=== PATIENT | male | born 2000 | race Caucasian/White ===

== ENCOUNTER 2022-01-08 23:35 | Emergency (ER) | payer SELFPAY ==
[2022-01-08 23:50] VITALS: BP 138/89; PULSE 97; RESP 18; TEMP 36.6; O2SAT 100; BMI 25.0
--- NOTE | 2022-01-08 23:53 | XRR_ITS ---
PROCEDURE INFORMATION: Exam: XR Right Hand Exam date and time: 01/09/2022 12:15 AM Age: 21 years old Clinical indication: Pain; Hand; Right; Patient HX: Punched a wooden door; Additional info: Trauma TECHNIQUE: Imaging protocol: Radiologic exam of the Right hand. Views: 3 or more views. COMPARISON: No relevant prior studies available. FINDINGS: Bones/joints: No fracture or other acute osseous abnormality. No acute joint abnormality demonstrated. Soft tissues: Soft tissue swelling noted. XR/XR hand RT min 3V* [id number] IMPRESSION: 1. Soft tissue swelling noted. 2. No acute fracture demonstrated.
--- NOTE | 2022-01-09 01:09 | ED_ITS ---
HPI - Extremity Problem General: Chief complaint: Extremity Injury, Upper Stated complaint: Right hand injury Time Seen by Provider: 01/09/22 00:55 History of Present Illness: Patient is a 21-year-old male comes to the ED with right hand injury. Injury occurred about late morning earlier today. He got angry and punched a wooden door with his right hand. He now has pain and swelling in his right hand. Associated symptoms: Deny chest pain, fever(s) or rash Review of Systems Const: Denies: fever(s), chills or fatigue Eyes: Denies: change in vision or eye discomfort ENMT: Denies: throat pain, odynophagia, nasal discharge or nasal congestion Card: Denies: chest pain, palpitations, edema, swelling of feet/ankles, dyspnea on exertion or orthopnea Resp: Denies: dyspnea, productive cough or non-productive cough GI: Denies: abdominal pain, nausea, vomiting, diarrhea, constipation or hematochezia : Denies: flank pain, difficulty urinating, dysuria or hematuria Musc: Reports: extremity pain (Right hand), extremity swelling (Right hand) and limited range of motion (Right hand due to pain); Denies: neck pain or back pain Skin/Breast: Denies: rash or new lesions Neuro: Denies: headache(s), numbness in extremities or weakness in extremities PFS ED PFSH: Medical History No pertinent family history Surgical History No pertinent past surgical history Physical Exam Const: COMMON NORMALS: no acute distress, patient oriented x3 and alert GENERAL APPEARANCE: cooperative HENMT: COMMON NORMALS: normocephalic HEAD & SCALP: normocephalic MOUTH: Normal oral and palatal mucosa present THROAT: posterior oropharynx normal and uvula midline Neck/C-Spine: COMMON NORMALS: supple GENERAL: Yes normal visual inspection Resp: COMMON NORMALS: normal respiratory effort, No retractions, No use of accessory muscles and clear to auscultation bilaterally AUSCULTATION: clear to auscultation bilaterally Cardio: COMMON NORMALS: regular rate, regular rhythm, S1 normal heart sound present, S2 normal heart sound present, No gallops present (Cardio), No clicks present (Cardio), No murmurs present (Cardio) and Peripheral pulses 2+ throughout RATE: regular rate RHYTHM: regular rhythm HEART SOUNDS: S1 normal heart sound present and S2 normal heart sound present PERIPHERAL PULSES: Peripheral pulses 2+ throughout GI: COMMON NORMALS: Normal to inspection, nondistended, normoactive bowel sounds present, Soft to palpation, non-tender and no masses PALPATION: Yes Soft to palpation : COMMON NORMALS: Yes no CVA tenderness BLADDER/KIDNEY EXAM: Yes no CVA tenderness Back/Pelvis: COMMON NORMALS: no CVA tenderness Extremity: NARRATIVE EXTREMITY EXAM: Right hand?small abrasion on dorsal aspect of second digit MCP joint. He has associated swelling throughout dorsal aspect of right hand with some tenderness to palpation. Limited range of motion in fingers due to pain. Neurovascular intact. Neuro: COMMON NORMALS: patient oriented x3 and moves all extremities SENSORIUM/ORIENTATION: Yes alert Skin: GENERAL SKIN EXAM: dry skin Course Vital Signs: Vital signs: Vital Signs Temperature 98 F 01/08/22 23:50 Pulse Rate 97 01/08/22 23:50 Respiratory Rate 18 01/08/22 23:50 Blood Pressure 138/89 01/08/22 23:50 Pulse Oximetry 100 01/08/22 23:50 MDM - Extremity (Nontraumatic) Medical Decision Making Patient is a 21-year-old male comes to the ED with right hand injury. Injury occurred about late morning earlier today. He got angry and punched a wooden door with his right hand. Vital stable. Exam of patient Right hand?small abrasion on dorsal aspect of second digit MCP joint. He has associated swelling throughout dorsal aspect of right hand with some tenderness to palpation. Limited range of motion in fingers due to pain. Neurovascular intact. X-ray of right hand showed no acute fractures or findings. Patient diagnosed with a contusion of right hand and was discharged home with a prescription of ibuprofen 800 mg. He was told to follow-up with his PCP next week for reevaluation. Rest, ice and elevate right hand to help with symptoms. Return ED precautions given. Patient understood and agreed with plan. Lab Data Radiology Impressions Hand X-Ray 01/08/22 23:53 IMPRESSION: 1. Soft tissue swelling noted. 2. No acute fracture demonstrated. Discharge Plan Discharge Patient Disposition: Home Clinical Impression: Contusion of hand, right Qualifiers: Encounter type: initial encounter Qualified Code(s): S60.221A - Contusion of right hand, initial encounter Condition: Stable Prescriptions: New ibuprofen 800 mg tablet 800 mg PO Q8H PRN (Reason: pain) Qty: 30 0RF Discharge Orders: Discharge ED (Routine); Ordered 01/09/22 Ordered By: Gabriele Patel Discharge Diet: Regular Discharge Activity: Increase activity as tolerated Patient Instructions: Contusion in Adults (ED) Activity Restrictions/Additional Instructions: Follow-up with medical provider as directed in the next 5 to 7 days reevaluation. Rest, ice and elevate right hand to help with swelling. Take medications as prescribed. Clean small abrasion on knuckle daily with soap and water then apply triple antibiotic ointment and bandage. Return to the ER or your medical provider if condition worsens. Please read and understand discharge instructions. Thank you for choosing [facility] for your healthcare needs today. Please realize this is an emergency room and that we are providing you with a medical screening exam and this may not be complete and all inclusive of all the testing and or work up that you may need to determine your ailment or severity of your illness. It is very important that you follow up as instructed or that you return to the Emergency Department should you have concerns or if your condition changes or worsens in any way. Coding Level of Care Code ED Order Entry Administrator for Tye Dickerson Exam Comprehensive
[2022-01-09] MEDS: HYDROcodone-acetaminophen 7.5-325 mg Tablet 1 TAB PO (01:50)
[2022-01-09] MEDS: neomycin-poly-bacitracin oint 0.9 gm Pkt 1 APPLIC TOPICAL (01:50)
== END 2022-01-09 02:31 | disposition home or self-care (01) ==
PROVIDERS: Emergency Provider Physician Assistant
DX: S60.221A Contusion of right hand, initial encounter (principal); W22.09XA Striking against other stationary object, initial encounter
CPT/HCPCS: 73130; 99283

== ENCOUNTER 2022-11-14 09:32 | Emergency (ER) | payer MEDICAID, SELFPAY ==
[2022-11-14 09:39] VITALS: BP 143/86; PULSE 107; TEMP 36.7; O2SAT 95; BMI 25.0
--- NOTE | 2022-11-14 09:50 | ED_ITS ---
HPI - Extremity Injury (Lower) General: Chief Complaint: Extremity Injury, Lower Stated Complaint: Right knee injury Time Seen by Provider: 11/14/22 09:38 Source: patient Mode of arrival: ambulatory Limitations: no limitations History of Present Illness: Patient is a 22-year-old male who presents to ED today for evaluation of right knee pain. Patient states approximately a month ago he initially injured the right knee while jumping on trampoline. He states he treated the knee conservatively at home and did feel like it was slowly improving however yesterday states he slipped on a wet surface and heard a pop pop pop in the knee and is now having significant pain and swelling. He is able to minimally bear weight on the knee. complaint: knee injury Onset (ago): week(s) Injury: Right: knee Place: home Severity: severe Relieving factors: immobilization Exacerbating factors: weight bearing, movement and palpation Context: jumping and other (twisting ) Associated symptoms: Reports no associated symptoms Other symptoms: none Treatments prior to arrival: other (knee brace/sleeve ) Review of Systems Musc: Reports: joint pain (R knee) and joint swelling (R knee); Denies: extremity pain, extremity swelling, joint redness or joint warmth Neuro: Reports: difficulty walking; Denies: numbness in extremities or sensory changes PFSH ED PFSH: Medical History No pertinent family history Surgical History No pertinent past surgical history Physical Exam Const: COMMON NORMALS: no acute distress, average body habitus, patient oriented x3, no limitations, healthy appearing, alert and well nourished Extremity: COMMON NORMALS: capillary refill normal, no clubbing, cyanosis or edema, no calf tenderness and no pedal edema GENERAL: Yes normal exam except as noted RIGHT LOWER EXTREMITY: Yes knee joint (diffuse tenderness to medial/lateral/anterior knee surfaces) Right knee: Yes inspection (notable swelling/effusion present), Yes ROM (slightly limited secondary to swelling/discomfort) and Yes neurovascular exam (normal) Neuro: COMMON NORMALS: patient oriented x3, moves all extremities, no focal motor deficits and no sensory deficits noted SENSORIUM/ORIENTATION: Yes alert Course Vital Signs: Vital signs: Vital Signs Temperature 98.1 F 11/14/22 09:39 Pulse Rate 107 H 11/14/22 09:39 Blood Pressure 143/86 11/14/22 09:39 Pulse Oximetry 95 11/14/22 09:39 Oxygen Delivery Me thod Room Air 11/14/22 09:39 MDM - Extremity Injury (Lower) Medical Decision Making History and physical exam concerning for possible internal derangement of the right knee. Recommend he continue wearing his knee brace/sleeve, we will give him crutches for weightbearing as tolerated, RICE therapy discussed, we will place him on NSAIDs/steroids to help with inflammation. Case management referral placed to get him set up with orthopedic follow-up. Lab Data Radiology Impressions Knee X-Ray 11/14/22 09:55 IMPRESSION: Prominent joint effusion, without an acute fracture. MRI may be of benefit for further evaluation, if clinically indicated. Discharge Plan Discharge Patient Disposition: Home Clinical Impression: Internal derangement of right knee Condition: Stable Prescriptions: New Medrol ([place]) 4 mg tablets,dose pack See Rx Instructions .ROUTE .COMPLEX Qty: 21 0RF Rx Instructions: orally per package directions Continued ibuprofen 800 mg tablet 800 mg PO Q8H PRN (Reason: pain) Qty: 20 0RF Discharge Orders: Discharge ED (Routine); Ordered 11/14/22 Ordered By: Shellie Boateng Patient Instructions: RICE Therapy Activity Restrictions/Additional Instructions: As we discussed weightbearing as tolerated. You may ice and elevate the extremity to help with swelling. Case management should reach out to you sometime this week to set you up with your follow-up orthopedic appointment. Coding Level of Care Code ED Die Set Up Worker for Tye Dickerson
--- NOTE | 2022-11-14 09:55 | XRR_ITS ---
PROCEDURE INFORMATION: Exam: XR Right Knee Exam date and time: 11/14/2022 10:00 AM Age: 22 years old Clinical indication: Pain and injury or trauma; Other: Jumping on trampoline; Sprain or strain; Patella or knee; Right; Injury date: Month ago; Additional info: Injury/swelling TECHNIQUE: Imaging protocol: Radiologic exam of the right knee. Views: 3 views. COMPARISON: No relevant prior studies available. FINDINGS: Bones/joints: Prominent joint effusion, without an acute fracture. MRI may be of benefit for further evaluation, if clinically indicated. Anatomic alignment. Soft tissues: Unremarkable soft tissues. XR/XR knee RT 3V* [id number] IMPRESSION: Prominent joint effusion, without an acute fracture. MRI may be of benefit for further evaluation, if clinically indicated.
--- NOTE | 2022-11-14 11:15 | DCPLANNER ---
Addendum entered by Renetta Warner 11/24/22 10:00: This appointment cancelled Addendum entered by Renetta Warner 11/15/22 11:00: Patient has a follow up appointment scheduled for Wednesday, November 23, 2022 at 8:[address] Berger at ortho. Original Note: restaurant and bar manager had message to schedule a follow up appointment for patient with ortho. restaurant and bar manager sent patients information to the front office staff at ortho. Patients information will be printed and reviewed. Clinic will call patient with appointment information.
--- NOTE | 2022-11-16 14:53 | DCPLANNER ---
change manager called patient due to no primary care physician - patient does not have insurance, heel caser gave patient the information to [facility] where patient can apply for the sliding scale.
== END 2022-11-14 10:45 | disposition home or self-care (01) ==
PROVIDERS: Emergency Provider Physician Assistant
DX: M23.91 Unspecified internal derangement of right knee (principal); W01.0XXA Fall on same level from slipping, tripping and stumbling without subsequent striking against object, initial encounter
CPT/HCPCS: 73562; 99283